=== PATIENT | male | born 1965 | race Caucasian/White ===

== ENCOUNTER 2020-09-06 08:02 | Day surgery (SDC) | payer MEDICAID ==
[2020-09-06] MEDS ORDERED: Glycopyrrolate 0.2 MG/ML 5 ML MDV IV ONE (08:03)
[2020-09-06] MEDS ORDERED: Propofol 200 MG/20 ML SDV IV ONE (08:03)
[2020-09-06] MEDS ORDERED: Lidocaine 2% 5 ML SDV INJECT ONE (08:03)
[2020-09-06] MEDS ORDERED: Sodium Chloride 0.9% 10 ML Syringe FLUSH PRN (08:15)
[2020-09-06] MEDS ORDERED: Lactated Ringers 1,000 ML IV SCH (08:15)
--- NOTE | 2020-09-06 10:16 | PCM.OPNOTE ---
- General Post-Op/Procedure Note Date of Surgery/Procedure: 09/06/20 Operative Procedure(s): egd Findings: normal appearing Chandni-y gastric bypass Pre Op Diagnosis: history of melena Post-Op Diagnosis: normal appearing Chandni-y gastric bypass Anesthesia Technique: MAC (s) Primary Surgeon: Elier Faria Anesthesia Provider: Chrissie Higuera Pathology: none Complications: None Condition: Good Free Text/Narrative:: see dictation
[2020-09-06 10:42] VITALS: BP 114/56; PULSE 70
--- NOTE | 2020-09-06 12:54 | OR ---
DATE OF OPERATION: 09/06/2020 SURGEON: Elire Faria MD PROCEDURE PERFORMED: Upper endoscopy. PREOPERATIVE DIAGNOSIS: History of melena. POSTOPERATIVE DIAGNOSIS: Normal exam. INDICATIONS FOR PROCEDURE: This is a 55-year-old white male who reported a 1 week episode of melenic stools that had spontaneously resolved. He is status post a Chandni-en-Y gastric bypass. He was offered and accepted an upper endoscopy. DESCRIPTION OF OPERATION: After an excellent IV sedation was administered, the bite block was inserted. The flexible endoscope was passed without difficulty down the patient's esophagus into the stomach, was passed down all portions of the Chandni limb, the following findings were noted. No marked abnormality was noted. Gastric pouch unremarkable. Esophagus unremarkable. The patient tolerated the procedure well. RECOMMENDATIONS: Continue his PPI. Follow up on a p.r.n. basis. /[id number] /GOYOL
== END 2020-09-06 10:51 | disposition home or self-care (01) ==
LOC: FB.SDS 08:02
PROVIDERS: ATTEND Surgery
DX: K92.1 Melena (principal); D50.0 Iron deficiency anemia secondary to blood loss (chronic); I10 Essential (primary) hypertension; E66.9 Obesity, unspecified; G47.33 Obstructive sleep apnea (adult) (pediatric); Z98.84 Bariatric surgery status; Z79.899 Other long term (current) drug therapy; Z88.8 Allergy status to other drugs, medicaments and biological substances; Z68.41 Body mass index [BMI] 40.0-44.9, adult
CPT/HCPCS: 00731-QZ; J2001; J2704; J3490; J7120

== ENCOUNTER 2021-03-24 14:15 | Emergency (ER) | payer MEDICAID ==
[2021-03-24 14:41] VITALS: BP 136/72; PULSE 65
--- NOTE | 2021-03-24 15:04 | EDM.PDOC ---
ED HPI GENERAL MEDICAL PROBLEM - General Chief Complaint: General Stated Complaint: LOW BLOOD COUNT Time Seen by Provider: 03/24/21 14:58 Source of Information: Reports: Patient History Limitations: Reports: No Limitations - History of Present Illness INITIAL COMMENTS - FREE TEXT/NARRATIVE: 56-year-old male who reports for the last week he has been feeling very weak and tired and sluggish. The symptoms have gotten particularly worse over the past 2- 3 days. He also looks somewhat pale to the . He apparently has had anemia from unknown source although it is felt to be GI. He had this happen about 5-6 months ago and this required him to be admitted and transfused with blood. He had an EGD at that time which was unremarkable. He is scheduled to get another EGD and a colonoscopy on 03/29/2021. According to the patient and the , the patient feels very similar to what he felt like when he had a low blood count 5- 6 months ago. He has had no nausea or vomiting. His stools have appeared normal to him. He has no abdominal pain or chest pain. In fact, he has no pain at all. He would rate his pain as a 0/10. No syncope or presyncope. No shortness of breath. There are no other associated signs or symptoms. There are no other modifying factors. 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: Other (see below) Headache Pain Score (Numeric/FACES): 4 - Related Data Allergies Allergy/AdvReac Type Severity Reaction Status Date / Time acetaminophen Allergy Rash Verified 09/05/20 15:40 [From Darvocet-N] propoxyphene napsylate Allergy Rash Verified 09/06/20 08:40 [From Darvocet-N] silver sulfadiazine Allergy Rash Verified 09/06/20 08:40 [From Silvadene] Home Meds: Home Meds FLUoxetine HCl [Prozac] 40 mg PO DAILY 04/02/15 [History] Multivitamin with Minerals [Multiple Vitamin] 1 tab PO DAILY 04/02/15 [History] Calcium Carbonate/Vitamin D3 [Calcium 1,000 + D3 Caplet] 1 tab PO DAILY 09/05/20 [History] Cholecalciferol (Vitamin D3) [Vitamin D3] 2,000 unit PO DAILY 09/05/20 [History] Cyanocobalamin (Vitamin B12) [Vitamin B12] 500 mcg PO TID 09/05/20 [History] Pantoprazole Sodium [Protonix] 40 mg PO DAILY 09/05/20 [History] buPROPion HCL [Wellbutrin Xl] 300 mg PO DAILY 09/05/20 [History] Past Medical History HEENT History: Reports: Impaired Vision Cardiovascular History: Reports: Hypertension, Other (See Below) Other Cardiovascular History: THROMBOPHLEBITIS Respiratory History: Reports: Asthma, Sleep Apnea Gastrointestinal History: Reports: GERD Genitourinary History: Reports: Renal Calculus Musculoskeletal History: Reports: Osteoarthritis, Other (See Below) Other Musculoskeletal History: NECROTIZING FASCIITIS, TRIGGER MIDDLE FINGER Psychiatric History: Reports: Anxiety, Depression Endocrine/Metabolic History: Reports: Obesity/BMI 30+ - Past Surgical History GI Surgical History: Reports: Bariatric Procedure (Gastric bypass surgery), EGD Musculoskeletal Surgical History: Reports: Other (See Below) (Left lower leg fasciotomy with I&D for necrotizing fasciitis.) Social & Family History - Tobacco Use Tobacco Use Status *Q: Never Tobacco User - Caffeine Use Caffeine Use: Reports: Coffee, Soda - Alcohol Use Alcohol Use History: No - Recreational Drug Use Recreational Drug Use: No - Living Situation & Occupation Living situation: Reports: 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.) ED ROS GENERAL - Review of Systems Review Of Systems: See Below Constitutional: Reports: Fatigue HEENT: Reports: No Symptoms Respiratory: Reports: No Symptoms Cardiovascular: Reports: No Symptoms Endocrine: Reports: Fatigue GI/Abdominal: Reports: No Symptoms : Reports: No Symptoms Musculoskeletal: Reports: No Symptoms Skin: Reports: No Symptoms Neurological: Reports: No Symptoms Psychiatric: Reports: No Symptoms Hematologic/Lymphatic: Reports: Anemia Immunologic: Reports: No Symptoms ED EXAM, GENERAL - Physical Exam Exam: See Below Exam Limited By: No Limitations General Appearance: Alert, No Apparent Distress, Obese Eye Exam: Bilateral Eye: EOMI, Normal Inspection (Sclerae are anicteric) Ears: Normal External Exam, Hearing Grossly Normal Ear Exam: Bilateral Ear: Auricle Normal Nose: Normal Inspection, Normal Mucosa, No Blood Throat/Mouth: Normal Inspection, Normal Lips, Normal Oropharynx, Normal Voice, No Airway Compromise Head: Atraumatic, Normocephalic Neck: Normal Inspection, Supple, Non-Tender, Full Range of Motion Respiratory/Chest: No Respiratory Distress, Lungs Clear, Normal Breath Sounds, No Accessory Muscle Use, Chest Non-Tender Cardiovascular: Normal Peripheral Pulses, Regular Rate, Rhythm, No Murmur Peripheral Pulses: 2+: Radial (L), Radial (R) GI/Abdominal: Normal Bowel Sounds, Soft, Non-Tender, No Mass Back Exam: Normal Inspection, Full Range of Motion Extremities: Normal Inspection, Normal Range of Motion, Non-Tender, Normal Capillary Refill, Pedal Edema (Trace bilaterally.) Neurological: Alert, Oriented, CN II-XII Intact, Normal Cognition, No Motor/Sensory Deficits Psychiatric: Normal Affect Skin Exam: Warm, Dry, Intact, No Rash, Pallor Course - Vital Signs Last Recorded V/S: Last Vital Signs Temp 36.6 C 03/24/21 14:15 Pulse 65 03/24/21 14:15 Resp 20 03/24/21 14:15 BP 136/72 03/24/21 14:15 Pulse Ox 97 03/24/21 14:15 - Orders/Labs/Meds Orders: Active Orders 24 hr Category Date Time Status Orthostatic Vital Signs [RC] ONETIME Care 03/24/21 15:25 Active Labs: Laboratory Tests 03/24/21 03/24/21 03/24/21 Range/Units 15:37 15:37 15:37 WBC 7.1 (3.2-10.1) x10-3/uL RBC 4.66 (3.90-5.90) x10(6)uL Hgb 10.1 L (12.9-17.7) g/dL Hct 33.6 L (38.3-50.1) % MCV 72.1 L (80.8-98.7) fL MCH 21.7 L (27.0-33.3) pg MCHC 30.1 (28.7-35.3) g/dL RDW 17.3 H (12.4-15.0) % Plt Count 310 (117-477) x10(3)uL MPV 8.0 (6.7-11.0) fL Neut % (Auto) 70.1 (40.3-71.8) % Lymph % (Auto) 15.1 L (15.8-45.3) % [place] % (Auto) 10.3 (5.5-15.2) % Eos % (Auto) 4.0 (0.1-6.8) % Baso % (Auto) 0.5 (0.3-3.8) % Neut # (Auto) 5.0 (1.7-6.9) x10-3/uL Lymph # (Auto) 1.1 (0.5-4.5) x10-3/uL [place] # (Auto) 0.7 (0.0-1.2) x10-3/uL Eos # (Auto) 0.3 (0.0-0.6) x10-3/uL Baso # (Auto) 0.0 (0.0-0.3) x10-3/uL PT 10.8 (9.0-11.1) sec INR 1.00 (1.00-1.24) Sodium 139 (135-145) mmol/L Potassium 3.8 (3.5-5.3) mmol/L Chloride 102 (100-110) mmol/L Carbon Dioxide 27 (21-32) mmol/L BUN 15 (7-18) mg/dL Creatinine 0.8 (0.70-1.30) mg/dL Est Cr Clr Drug Dosing 102.13 mL/min Estimated GFR (MDRD) > 60 (>60) BUN/Creatinine Ratio 18.8 (9-20) Glucose 91 (80-116) mg/dL Calcium 7.4 L (8.6-10.2) mg/dL Magnesium 1.9 (1.8-2.5) mg/dL Total Bilirubin 0.4 (0.1-1.3) mg/dL AST 22 (5-25) IU/L ALT 29 (12-36) U/L Alkaline Phosphatase 90 (56-112) IU/L Total Protein 7.1 (6.0-8.0) g/dL Albumin 3.5 (3.5-5.2) g/dL Globulin 3.6 g/dL Albumin/Globulin Ratio 1.0 Blood Type Gel Antibody Screen 03/24/21 Range/Units 15:37 WBC (3.2-10.1) x10-3/uL RBC (3.90-5.90) x10(6)uL Hgb (12.9-17.7) g/dL Hct (38.3-50.1) % MCV (80.8-98.7) fL MCH (27.0-33.3) pg MCHC (28.7-35.3) g/dL RDW (12.4-15.0) % Plt Count (117-477) x10(3)uL MPV (6.7-11.0) fL Neut % (Auto) (40.3-71.8) % Lymph % (Auto) (15.8-45.3) % [place] % (Auto) (5.5-15.2) % Eos % (Auto) (0.1-6.8) % Baso % (Auto) (0.3-3.8) % Neut # (Auto) (1.7-6.9) x10-3/uL Lymph # (Auto) (0.5-4.5) x10-3/uL [place] # (Auto) (0.0-1.2) x10-3/uL Eos # (Auto) (0.0-0.6) x10-3/uL Baso # (Auto) (0.0-0.3) x10-3/uL PT (9.0-11.1) sec INR (1.00-1.24) Sodium (135-145) mmol/L Potassium (3.5-5.3) mmol/L Chloride (100-110) mmol/L Carbon Dioxide (21-32) mmol/L BUN (7-18) mg/dL Creatinine (0.70-1.30) mg/dL Est Cr Clr Drug Dosing mL/min Estimated GFR (MDRD) (>60) BUN/Creatinine Ratio (9-20) Glucose (80-116) mg/dL Calcium (8.6-10.2) mg/dL Magnesium (1.8-2.5) mg/dL Total Bilirubin (0.1-1.3) mg/dL AST (5-25) IU/L ALT (12-36) U/L Alkaline Phosphatase (56-112) IU/L Total Protein (6.0-8.0) g/dL Albumin (3.5-5.2) g/dL Globulin g/dL Albumin/Globulin Ratio Blood Type A POSITIVE Gel Antibody Screen Negative - Re-Assessments/Exams Free Text/Narrative Re-Assessment/Exam: 03/24/21 16:25: Patient's blood tests are reassuring. His hemoglobin is 10.1. His BUN and creatinine are normal. His chemistries are normal. His LFTs are normal. He has remained with a normal pulse and normal blood pressure. I am still awaiting orthostatic vital signs at this point. I did call and discuss the patient's case with Dr. Soto as Dr. Soto has been following the patient in clinic. At this point, I feel if the patient's orthostatic vital signs are normal, he can be discharged home with follow-up with Dr. Soto in a few days and to continue with the EGD and colonoscopy that is scheduled for next Thursday. Discussed all this with the patient and with his and they are in agreement with this plan. 03/24/21 16:47: The patient's orthostatic vital signs are normal. I will discharge the patient home as outlined above. Departure - Departure Time of Disposition: 16:50 Disposition: Home, Self-Care 01 Condition: Good Clinical Impression: Microcytic anemia Fatigue Qualifiers: Fatigue type: unspecified Qualified Code(s): R53.83 - Other fatigue - Discharge Information Referrals: Trevor Soto DO [Primary Care Provider] - Forms: ED Department Discharge Additional Instructions: Your hemoglobin was 10.1. Your other blood tests were all reassuringly normal. Your blood pressure and pulse were normal. I am unsure why you are having the increased fatigue and "being out of it" but it does not appear to be do to worsening blood loss. You should continue your medications as currently. You should call to arrange to see Dr. Soto in the next few days. Keep your candis eduled colonoscopy and EGD. Back to the emergency department for worsening weakness or fatigue, black stools, blood in your stool, abdominal pain, vomiting or any other concerning signs or symptoms. Sepsis Event Note (ED) - Evaluation Sepsis Screening Result: No Definite Risk - Focused Exam Vital Signs: Vital Signs Temp Pulse Resp BP Pulse Ox 03/24/21 14:15 36.6 C 65 20 136/72 97 - My Orders Last 24 Hours: My Active Orders 03/24/21 15:25 Orthostatic Vital Signs [RC] ONETIME - Assessment/Plan Last 24 Hours: My Active Orders 03/24/21 15:25 Orthostatic Vital Signs [RC] ONETIME
== END 2021-03-24 17:01 | disposition home or self-care (01) ==
LOC: FB.ED 14:15
DX: D50.9 Iron deficiency anemia, unspecified (principal); I10 Essential (primary) hypertension; J45.909 Unspecified asthma, uncomplicated; K21.9 Gastro-esophageal reflux disease without esophagitis; E66.9 Obesity, unspecified; Z68.41 Body mass index [BMI] 40.0-44.9, adult; Z88.6 Allergy status to analgesic agent; Z88.8 Allergy status to other drugs, medicaments and biological substances; Z79.899 Other long term (current) drug therapy
CPT/HCPCS: 36415; 80053; 83735; 85025; 85610; 86850; 86900; 86901; 99284

== ENCOUNTER 2021-11-18 13:02 | Emergency (ER) | payer MEDICAID ==
[2021-11-18] MEDS ORDERED: Acetaminophen 500 MG Tab PO ONE (13:12)
[2021-11-18] MEDS ORDERED: Aspirin 81 MG Tab.Chew PO ONE (13:28)
[2021-11-18 14:22] VITALS: BP 130/83; PULSE 80
== END 2021-11-18 13:40 | disposition home or self-care (01) ==
LOC: FB.ED 13:02
DX: U07.1 COVID-19 (principal); I10 Essential (primary) hypertension; J45.909 Unspecified asthma, uncomplicated; K21.9 Gastro-esophageal reflux disease without esophagitis; E66.9 Obesity, unspecified; Z88.6 Allergy status to analgesic agent; Z91.048 Other nonmedicinal substance allergy status; Z79.899 Other long term (current) drug therapy
CPT/HCPCS: 93005; 99284-25; A9270-GY

== ENCOUNTER 2025-09-05 09:05 | Emergency (ER) | payer SELFPAY ==
[2025-09-05 09:18] VITALS: BP 166/102; PULSE 97
[2025-09-05] MEDS: Lidocaine/Epineph/Tetracaine 3 ML Syringe TOP ONE (09:41)
== END 2025-09-05 10:24 | disposition home or self-care (01) ==
LOC: FB.ED 09:05
DX: S01.01XA Laceration without foreign body of scalp, initial encounter (principal); I10 Essential (primary) hypertension; J45.909 Unspecified asthma, uncomplicated; Z98.84 Bariatric surgery status; Z88.8 Allergy status to other drugs, medicaments and biological substances; W01.0XXA Fall on same level from slipping, tripping and stumbling without subsequent striking against object, initial encounter
CPT/HCPCS: 12002; 70450; 99283; A9270